=== PATIENT | male | born 1985 | race Caucasian/White ===

== ENCOUNTER 2016-07-09 19:28 | Emergency (ER) ==
[2016-07-09] MEDS ORDERED: BOOSTRIX VACCINE IM ONE (20:12)
[2016-07-09] MEDS ORDERED: XYLOCAINE 1% INJ ONE (20:12)
--- NOTE | 2016-07-09 20:13 | PROVIDER DOCUMENTATION ---
HPI-Rash/Wound/ReCheck <IsaiSoumyalorne Marilee - Last Filed: 07/09/16 21:45> - General Source: patient <Jeffery Florence - Last Filed: 07/10/16 17:18> - General Chief Complaint: Laceration[s] Stated Complaint: LAC TO RT HAND Time Seen by Provider: 07/09/16 20:05 Allergies/Adverse Reactions: Allergies Allergy/AdvReac Type Severity Reaction Status Date / Time Penicillins Allergy Unknown Verified 07/09/16 19:38 Home Medications: Home Medication List Medication Instructions Recorded Confirmed Last Taken Type Ibuprofen [Motrin] 800 mg PO Q8H PRN PRN #20 tablet 07/09/16 Unknown Rx Insulin Lispro [Humalog] 100 unit SQ AC MDD as directed 07/09/16 07/09/16 History Omeprazole [Prilosec] 20 mg PO DAILY@0700 #20 capsule 07/09/16 Unknown Rx Sulfamethoxazole/Trimethoprim 1 each PO BID #10 tablet 07/09/16 Unknown Rx [Bactrim Ds Tablet] - History of Present Illness-Dermatology Nature of Presenting Problem: Pt is a 30 y/o M c chief complaint of laceration to his R small finger that occurred after he dropped a glass bowel while helping his do dishes this evening. Pt states bleeding was controlled c direct pressure. On arrival, pt is in no distress and denies any decreased ROM or sensation to his finger. ( Jeffery Florence) Review of Systems - Adult - REVIEW OF SYSTEMS - ADULT Constitutional: reports: no symptoms reported. denies: chills, fatique Eyes: reports: no symptoms reported. denies: blurred vision, double vision Ears, Nose, Mouth & Throat: reports: no symptoms reported. denies: ear pain, nose pain Cardiovascular: reports: no symptoms reported. denies: chest pain, irregular heart rate Respiratory: reports: no symptoms reported. denies: cough, shortness of breath Gastrointestinal: reports: no symptoms reported. denies: abdominal pain, nausea Genitourinary: reports: no symptoms reported. denies: dysuria, hematuria Musculoskeletal: reports: no symptoms reported. denies: joint pain, joint swelling Integumentary: reports: see HPI, skin sores/ulcer (laceration). denies: hives, itching, rash Neurological: reports: no symptoms reported. denies: numbness, paresthesia Psychiatric: reports: no symptoms reported. denies: anxiety, emotional problems Endocrine: reports: no symptoms reported. denies: cold intolerance, heat intolerance Hematologic/Lymphatic: reports: no symptoms reported. denies: blood clots, low blood count Allergic/Immunologic: reports: no symptoms reported. denies: allergic reactions , frequent infections All Other Systems: Reviewed and Negative <Jeffery Florence - Last Filed: 07/10/16 17:18> Past History - Adult - PAST MEDICAL HISTORY-ADULT Review of Records: reports: Old Records Reviewed, Nursing Assessment Review, Medications Reviewed, Social history reviewed & non-contributory. Major Childhood Illnesses: reports: denies history Cardiovascular: reports: denies history Respiratory: reports: denies history Gastrointestinal: reports: denies history Obstetrical/Gynecological: reports: denies history Genitourinary: reports: denies history Musculoskeletal: reports: denies history Neurological: reports: denies history Endocrine/Immune: reports: denies history Other Conditions: reports: denies history - PRIOR SURGERIES/PROCEDURES Surgical/Procedure History: reports: reviewed, not pertinent - IMMUNIZATION STATUS Childhood Immunizations: See Nurse Assessment Flu Vaccine: See Nurse Assessment - FAMILY HISTORY Family History: reviewed, not pertinent - SOCIAL HISTORY Smoking: denies Substance Use: none/never Alcohol Use Frequency: never Living Situation: family <Jeffery Florence - Last Filed: 07/10/16 17:18> Physical Exam-General - PHYSICAL EXAM-ADULT Initial Vital Signs Reviewed: Yes - CONSTITUTIONAL General Appearance: appears well, alert, no apparent distress - EYES Eyes: PERRL/EOMI, pink conjunctivae, fundi clear, no AV nicking - HEAD, EARS, NOSE, MOUTH & THROAT HENMT: normocephalic/atraumatic, moist mucous membranes, normal ENT inspection - NECK Neck: non-tender - RESPIRATORY Respiratory: chest non-tender, lungs clear, normal breath sounds - CARDIOVASCULAR Cardiovascular: normal peripheral pulses, regular rate, rhythm, no edema - GASTROINTESTINAL (ABDOMEN) Abdominal Exam: normal bowel sounds, non tender, soft - LYMPHATIC Lymphatic: no adenopathy - MUSCULOSKELETAL Back Exam: normal inspection, no CVA tenderness, no vertebral tenderness Extremity: normal range of motion, non-tender, other (1cm lac to ulnar aspect of R small finger, full sensation and ROM intact, no sign of tendon or nerve injury, bleeding controlled) <Jeffery Florence - Last Filed: 07/10/16 17:18> Progress <Kwesi Alex - Last Filed: 07/09/16 21:45> <Jeffery Florence - Last Filed: 07/10/16 17:18> - PLAN OF CARE/RESULTS Progress/Plan/Lab Results: Orders Category Date Time Status Laceration Set up DIRECTED Care 07/09/16 20:12 Active Wound Care DIRECTED Care 07/09/16 20:12 Active Diph,Pertuss(Acell),Tet Vac/Pf [Boostrix Vaccine] Med 07/09/16 20:12 Discontinued 0.5 ml IM .ONCE ONE Lidocaine 1% [Xylocaine 1%] Med 07/09/16 20:12 Discontinued 10 ml INJ NOW ONE Vital Signs - 24 hr 07/09/16 07/09/16 19:31 21:41 Temperature 97.9 F Pulse Rate 91 H 86 Respiratory 18 18 Rate Blood Pressure 153/87 137/81 O2 Sat by Pulse 100 98 Oximetry (Jeffery Florence) Procedures - LACERATION/WOUND REPAIR/FB Right Finger Wound Location: Other: right medial 5th finger Wound Length: 2cm Wound's Depth, Shape: superficial, flap, stellate (v-shaped) Wound Explored/Foreign Body: clean, no foreign body found Irrigated with Saline?: Yes Prepped with: Hibiclens, Kit Utilized, Sterile Drapes Applied Anesthetic: 1%, Lidocaine/Xylocaine Volume of Anesthetic (ml's): 3 (digital block performed) Wound Debrided: minimal Wound Repaired with: Sutures Suture Size/Type: 5.0, Non-Absorbable, Nylon Number of Sutures: 6 Layer Closure?: No Sterile Dressing Applied?: Yes Splint Applied?: No Sling Applied?: No Post Procedure Neurovascular Exam: Intact, No Tendon Injury <Kwesi Alex - Last Filed: 07/09/16 21:45> Departure <Kwesi Alex - Last Filed: 07/09/16 21:45> - Departure Time of Disposition Order: 20:49 Certified Medical Emergency: Emergent <Jeffery Florence - Last Filed: 07/10/16 17:18> - Departure DIAGNOSIS: Laceration of finger of right hand Qualifiers: Encounter type: initial encounter Qualified Code(s): S61.219A - Laceration without foreign body of unspecified finger without damage to nail, initial encounter Disposition: HOME 01 Condition: Stable Additional Instructions: KEEP WOUND CLEAN, DRY, COVERED. CHANGE BANDAGE DAILY. RETURN TO THE ER IN 7 DAYS FOR RE-EVALUATION OF WOUND AND POSSIBLE SUTURE REMOVAL. ED Follow Up Instructions: You have been treated by a care provider in the Emergency Department. These instructions are being provided to you so you can have an understanding of how to care for yourself upon discharge. Upon discharge from the Emergency Department, you are responsible for making arrangements for follow-up care by a physician of your choice. Take all prescribed medications as directed. Return to the Emergency Department immediately for any new or worsening symptoms. You may call the Physician Referral phone number at [phone] to obtain a list of Physicians who are taking new patients. Prescriptions: Sulfamethoxazole/Trimethoprim [Bactrim Ds Tablet] 1 each PO BID #10 tablet Ibuprofen [Motrin] 800 mg PO Q8H PRN PRN #20 tablet PRN Reason: inflammation Omeprazole [Prilosec] 20 mg PO DAILY@0700 #20 capsule Referrals: None,PCP [Primary Care Provider] - Forms: Return to School/Parent Work Instructions: Laceration Care, Adult, [id number] Attestation - Physician/ JOSEE Attestation Patient care was provided by Advanced Practice Provider:: Yes Advanced Practice Provider:: Jeffery Florence Advanced Practice Provider documentation review:: The Mid-level provider documentation, treatment plan and medical decision making was reviewed by the physician who agrees with all treatment and medical decision making by the MLP. <Jeffery Florence - Last Filed: 07/10/16 17:18> Physician Attestation
[2016-07-09 21:42] VITALS: BP 137/81
== END 2016-07-09 21:50 | disposition home or self-care (01) ==
LOC: ED 19:28
DX: S61.216A Laceration without foreign body of right little finger without damage to nail, initial encounter (principal); X58.XXXA Exposure to other specified factors, initial encounter; Z79.4 Long term (current) use of insulin; Z23 Encounter for immunization
CPT/HCPCS: 90715